=== PATIENT | female | born 1985 | race Caucasian/White ===

== ENCOUNTER → 2016-10-30 | Outpatient (CLI) | payer BC ==
[2016-10-30 13:05] LABS: Basophils % (A) 0 %; CH 27.4; CHCM 33.8; Eosinophils # (A) 0.1 k/uL (0-0.7); Eosinophils % (A) 1 %; HCT 36.1 % (34.0-46.0); HDW 2.82; Luc # (Auto) 0.12; Luc % (Auto) 1; Lymphocytes # (A) 1.7 k/uL (1.0-4.8); Lymphocytes % (A) 18 %; MCHC 33.3 g/dL (31.0-37.0); MCV 81.2 fL (80.0-100.0); Mean Platelet Volume 9.1; Monocytes # (A) 0.5 k/uL (0-1.0); Monocytes % (A) 5 %; Neutrophils # (A) 7.2 k/uL (1.3-7.7); Neutrophils % (A) 75 %; RBC 4.44 m/uL (3.80-5.40); RDW 15.6 % (11.5-15.5); WBC 9.6 k/uL (3.8-10.6); WBC (Perox) 9.76
[2016-10-30 14:26] LABS: Vitamin B12 320 pg/mL (239-931)
[2016-10-30 14:41] LABS: Erythrocyte Sedimentation Rate 12 mm/hr (0-20)
[2016-10-30 17:27] LABS: ANA w/Reflex to Titer NEGATIVE (NEGATIVE)
[2016-10-31 15:15] LABS: Avocado Class CLASS 0; Banana IgE Class CLASS 0; Hazelnut IgE <0.35 kU/L (<0.35); Hazelnut IgE Class CLASS 0; Kiwi IgE <0.35 kU/L (<0.35); Kiwi IgE Class CLASS 0
== END | disposition home or self-care (01) ==
LOC: LABWHC1 12:23
PROVIDERS: ATTEND Otolaryngology
DX: I50.9 Heart failure, unspecified (principal); J30.89 Other allergic rhinitis; B44.89 Other forms of aspergillosis
CPT/HCPCS: 36415; 82306; 82607; 82746; 84165; 84207; 84630; 85025; 85652; 86003; 86038; 86235; 86694

== ENCOUNTER → 2017-01-08 | Outpatient (CLI) | payer BC ==
[2017-01-08 14:05] LABS: Basophils % (A) 0 %; CH 26.5; CHCM 32.2; Eosinophils # (A) 0.1 k/uL (0-0.7); Eosinophils % (A) 1 %; HCT 32.4 % (34.0-46.0); HDW 3.13; Hypochromasia Slight; Luc # (Auto) 0.18; Luc % (Auto) 2; Lymphocytes # (A) 1.7 k/uL (1.0-4.8); Lymphocytes % (A) 16 %; MCH 28.2 pg (25.0-35.0); MCV 82.8 fL (80.0-100.0); Mean Platelet Volume 8.8; Monocytes # (A) 0.5 k/uL (0-1.0); Monocytes % (A) 5 %; Neutrophils # (A) 7.7 k/uL (1.3-7.7); Neutrophils % (A) 75 %; RBC 3.92 m/uL (3.80-5.40); RDW 15.1 % (11.5-15.5); WBC 10.2 k/uL (3.8-10.6); WBC (Perox) 10.23
== END | disposition home or self-care (01) ==
LOC: LABWHC1 12:43
PROVIDERS: ATTEND Obstetrics & Gynecology
DX: O26.90 Pregnancy related conditions, unspecified, unspecified trimester (principal); Z3A.00 Weeks of gestation of pregnancy not specified
CPT/HCPCS: 36415; 82950; 85025

== ENCOUNTER → 2019-08-14 | Outpatient (CLI) | payer BC ==
[2019-08-14 12:03] LABS: Basophils % (A) 1 %; Eosinophils # (A) 0.2 k/uL (0-0.7); Eosinophils % (A) 3 %; HCT 38.6 % (34.0-46.0); HGB 12.8 gm/dL (11.4-16.0); Lymphocytes # (A) 1.9 k/uL (1.0-4.8); Lymphocytes % (A) 28 %; MCH 27.3 pg (25.0-35.0); MCHC 33.1 g/dL (31.0-37.0); MCV 82.3 fL (80.0-100.0); Mean Platelet Volume 7.3; Monocytes # (A) 0.5 k/uL (0-1.0); Monocytes % (A) 7 %; Neutrophils # (A) 4.1 k/uL (1.3-7.7); Neutrophils % (A) 60 %; Platelet Count 276 k/uL (150-450); RBC 4.69 m/uL (3.80-5.40); RDW 15.7 % (11.5-15.5); WBC 6.7 k/uL (3.8-10.6)
== END | disposition home or self-care (01) ==
LOC: LABPAT 10:23
PROVIDERS: ATTEND Surgery
DX: Z01.812 Encounter for preprocedural laboratory examination (principal); K43.0 Incisional hernia with obstruction, without gangrene; K42.0 Umbilical hernia with obstruction, without gangrene; F17.200 Nicotine dependence, unspecified, uncomplicated; D64.9 Anemia, unspecified
CPT/HCPCS: 36415; 85025

== ENCOUNTER 2019-08-20 08:47 | Day surgery (SDC) | payer BC ==
[2019-08-15 13:13] VITALS: BMI 28.3
[~2019-08-20 08:47] MED LIST: DEXAMETHASONE SOD PHOSPHATE 10 MG/ML 1 ML VIAL IV ONE; HEPARIN SODIUM,PORCINE 5,000 UNIT/ML 1 ML VIAL SQ ONE; LACTATED RINGERS 1,000 ML IV SCH; LIDOCAINE 1% 20 ML VIAL (10MG/ML) FOR IV START INTRADERMA PRN; MIDAZOLAM 2 MG/2 ML VIAL IV PRN; ONDANSETRON 4 MG/2 ML VIAL IVP ONE; SCOPOLAMINE 1.5MG/72HR PATCH TRANSDERM ONE
[2019-08-20] MEDS ORDERED: MIDAZOLAM 2 MG/2 ML VIAL IVP ONE (11:02)
--- NOTE | 2019-08-20 11:03 | P.GSHP ---
History of Present Illness H&P Date: 08/20/19 Chief Complaint: Umbilical and ventral hernia This is a 34-year-old female who's developed an umbilical and ventral hernia. Patient presents today for laparoscopic robotic-assisted repair. Past Medical History Past Medical History: Asthma, Eye Disorder, GERD/Reflux Additional Past Medical History / Comment(s): Narrow angles in eyes. Umbilical, ventral hernia's currently. History of Any Multi-Drug Resistant Organisms: MRSA Date of last positivie culture/infection: 2006 MDRO Source:: Leg Additional Past Surgical History / Comment(s): Colonoscopy Past Anesthesia/Blood Transfusion Reactions: Motion Sickness, Postoperative Nausea & Vomiting (PONV) Smoking Status: Never smoker - Past Family History Mother Sister(s) Family Medical History: CVA/TIA Medications and Allergies Home Medications Medication Instructions Recorded Confirmed Type Cetirizine HCl [Zyrtec] 10 mg PO DAILY 08/15/19 08/20/19 History Citalopram Hydrobromide [CeleXA] 20 mg PO HS 08/15/19 08/20/19 History Levalbuterol Hfa Inhaler [Xopenex 2 puff INHALATION Q6HR PRN 08/15/19 08/20/19 History Hfa Inhaler] Montelukast [Singulair] 10 mg PO HS 08/15/19 08/20/19 History Pantoprazole Sodium [Protonix] 20 mg PO DAILY PRN 08/15/19 08/20/19 History Prednisolone Acetate/Pf 1 drop LEFT EYE QID 08/20/19 08/20/19 History [Prednisolone Acet 1% Eye Drop] Allergies Allergy/AdvReac Type Severity Reaction Status Date / Time Latex, Natural Rubber Allergy Swelling, Verified 08/15/19 12:55 itching Surgical - Exam Vital Signs Temp Pulse Resp BP Pulse Ox 98.5 F 97 116 H 112/75 98 08/20/19 09:14 08/20/19 09:14 08/20/19 09:14 08/20/19 09:14 08/20/19 09:14 - General well developed, well nourished, no distress - Eyes PERRL - ENT normal pinna - Neck no masses - Respiratory normal expansion - Cardiovascular Rhythm: regular - Abdomen Abdomen: soft, non tender Hernia: umbilical (3 cm ventral hernia located above the umbilicus) Assessment and Plan Assessment: Umbilical and ventral hernia. We'll perform laparoscopic robotic-assisted repair.
[2019-08-20] MEDS ORDERED: PROPOFOL 10 MG/ML 20 ML VIAL IV ONE (11:17)
[2019-08-20] MEDS ORDERED: ROCURONIUM BROMIDE 10 MG/ML 10 ML VIAL IV ONE (11:17)
[2019-08-20] MEDS ORDERED: SUCCINYLCHOLINE CHLORIDE 100 MG/5 ML SYR IV ONE (11:17)
[2019-08-20] MEDS ORDERED: MIDAZOLAM 2 MG/2 ML VIAL ONE (11:17)
[2019-08-20] MEDS ORDERED: fentaNYL (PF) 50 MCG/ML 2 ML AMP ONE (11:17)
[2019-08-20] MEDS ORDERED: KETAMINE 10 MG/ML 20 ML VIAL ONE (11:17)
[2019-08-20] MEDS ORDERED: LIDOCAINE 1% INJ 10MG/ML (20 ML MDV) ONE (11:17)
[2019-08-20] MEDS ORDERED: NEOSTIGMINE 1 MG/ML 10 ML VIAL ONE (11:17)
[2019-08-20] MEDS ORDERED: KETOROLAC 30 MG/ML 1 ML VIAL ONE (11:17)
[2019-08-20] MEDS ORDERED: GLYCOPYRROLATE 0.2 MG/ML 2 ML VIAL ONE (11:17)
[2019-08-20] MEDS ORDERED: HYDROmorphone (PF) 1 MG/ML ONE (11:17)
[2019-08-20] MEDS ORDERED: LACTATED RINGERS 1,000 ML IV ONE ×3 (11:42→14:25)
[2019-08-20] MEDS ORDERED: BUPIVACAINE (PF) 0.25% 30 ML VIAL SQ ONE (11:59)
[2019-08-20] MEDS: HYDROmorphone 0.5 MG/0.5 ML SYRINGE IVP PRN ×4 (12:54→13:26)
[2019-08-20 12:58] VITALS: TEMP 98.2
--- NOTE | 2019-08-20 13:26 | P.OP ---
Date of Procedure: 08/20/19 Preoperative Diagnosis: Umbilical hernia Ventral hernia Postoperative Diagnosis: Umbilical hernia Ventral hernia Procedure(s) Performed: Laparoscopic repair of umbilical hernia Laparoscopic repair of ventral hernia Partial omentectomy Anesthesia: DAVE Surgeon: Alvarez Parra Pathology: none sent Condition: stable Disposition: PACU Description of Procedure: The patient was placed on the operating table in the supine position. He received general anesthesia. His abdomen was prepped and draped usual fashion. Using a 5 mm optical trocar under direct visualization the peritoneal cavity was entered in the left upper quadrant. The abdomen was then insufflated. The laparoscope was placed back into the perineal cavity. Next a 8 mm robotic trocar was placed in the left lower quadrant and a 12 mm robotic trocar was placed in the left lateral position. The original 5 mm trocar was exchanged for a 8 mm robotic trocar. The patient's placed in the left side up position. And the patient was undocked the robot. The umbilical hernia was visualized. Using hook cautery the peritoneum over the umbilical hernia was excised. The incarcerated omentum the fascia was then dissected free and sent to pathology. The ventral hernia was located above the umbilical hernia. The fascial opening was repaired using 0V LOC suture. Next a piece of 11 cm round ventral light ST mesh was placed into the. Cavity and secured with 2 OV lock suture. The patient was undocked the robot. The needles were retrieved. The fascia of the 12 mm trocar site was closed with 0 Ethibond suture. Skin was closed interrupted 3-0 Monocryl suture. Dermabond dressings was applied. Patient top procedure well and was sent to recovery room stable condition.
[2019-08-20 14:12] VITALS: RESP 16
[2019-08-20] MEDS ORDERED: HYDROcodone/APAP 5-325MG 1 EACH TAB PO ONE (14:17)
[2019-08-20 14:52] VITALS: BP 111/72; PULSE 101
[2019-08-20] MEDS ORDERED: ONDANSETRON 4 MG/2 ML VIAL IVP ONE ×2 (14:58)
== END 2019-08-20 15:32 | disposition home or self-care (01) ==
LOC: OR 08:47
PROVIDERS: ATTEND Surgery
DX: K42.0 Umbilical hernia with obstruction, without gangrene (principal); K43.9 Ventral hernia without obstruction or gangrene; J45.909 Unspecified asthma, uncomplicated; K21.9 Gastro-esophageal reflux disease without esophagitis; H40.033 Anatomical narrow angle, bilateral; Z86.14 Personal history of Methicillin resistant Staphylococcus aureus infection; Z82.3 Family history of stroke; Z79.899 Other long term (current) drug therapy; Z91.040 Latex allergy status; Z91.09 Other allergy status, other than to drugs and biological substances
CPT/HCPCS: 49653; S2900; 88302

== ENCOUNTER → 2019-11-06 | Outpatient (CLI) | payer BC ==
[2019-11-06 14:37] LABS: HCT 38.5 % (34.0-46.0); HGB 12.3 gm/dL (11.4-16.0); MCH 25.9 pg (25.0-35.0); RBC 4.75 m/uL (3.80-5.40); WBC 7.1 k/uL (3.8-10.6)
[2019-11-06 14:38] LABS: Basophils % (A) 0 %; Eosinophils # (A) 0.1 k/uL (0-0.7); Eosinophils % (A) 2 %; Lymphocytes # (A) 2.2 k/uL (1.0-4.8); Lymphocytes % (A) 30 %; Mean Platelet Volume 9.6; Monocytes # (A) 0.4 k/uL (0-1.0); Monocytes % (A) 5 %; Neutrophils # (A) 4.3 k/uL (1.3-7.7); Neutrophils % (A) 61 %; Platelet Count 266 k/uL (150-450)
[2019-11-06 14:53] LABS: African American GFR (CKD) >90 (>60 ml/min/1.73 sqM); Anion Gap 10 mmol/L; Blood Urea Nitrogen 13 mg/dL (7-17); Calcium 9.9 mg/dL (8.4-10.2); Carbon Dioxide 26 mmol/L (22-30); Chloride 104 mmol/L (98-107); Glucose 88 mg/dL (74-99); Non-African American GFR(CKD) >90 (>60 ml/min/1.73 sqM); Potassium 4.1 mmol/L (3.5-5.1); Sodium 140 mmol/L (137-145)
== END | disposition home or self-care (01) ==
LOC: LABPAT 14:11
PROVIDERS: ATTEND Obstetrics & Gynecology
DX: Z01.812 Encounter for preprocedural laboratory examination (principal); N39.3 Stress incontinence (female) (male)
CPT/HCPCS: 80048; 85025

== ENCOUNTER 2019-11-11 06:03 | Inpatient (IN) | payer BC ==
[2019-11-06 13:37] VITALS: BMI 28.9
--- NOTE | 2019-11-10 19:26 | P.HPOB ---
History of Present Illness H&P Date: 11/10/19 Chief Complaint: Uterine prolapse, cystocele, rectocele, urinary incontinence This is a 34 y.o. female, 2, para 2, who presents for total vaginal hysterectomy with anterior and posterior repair due to uterine prolapse with cystocele and rectocele. She is also scheduled for transobturator sling by Dr. Barnard for urinary stress incontinence. She complains of worsening incontinence since the of her 1st child. She also feels perineal and pelvic pressure along with an aching pain. Her symptoms are exacerbated by physical activity. She has tried Kegel exercises. Urology also recommended pelvic floor physical therapy, but her insurance didnt cover it very well. She is done with childbearing and wishes definitive surgical treatment. OB Hx: . History of 2 vaginal deliveries. 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 had a vasectomy. Social Hx: . Works for [employer], [employer]. Review of Systems Constitutional: Denies chills, Denies fever Eyes: denies blurred vision, denies pain Ears, nose, mouth and throat: Denies headache, Denies sore throat Cardiovascular: Denies chest pain, Denies shortness of breath Respiratory: Denies cough Gastrointestinal: Denies abdominal pain, Denies diarrhea, Denies nausea, Denies vomiting Genitourinary: Reports pelvic pain, Reports prolapse symptoms, Reports stress incontinence Menstruation: Reports menses 1-7 days, Reports period normal Musculoskeletal: Denies myalgias Integumentary: Reports rash (excema) Neurological: Denies numbness, Denies weakness Psychiatric: Reports anxiety, Reports depression Endocrine: Denies fatigue, Denies weight change Past Medical History Past Medical History: Asthma, Eye Disorder, GERD/Reflux Additional Past Medical History / Comment(s): Narrow angle glaucoma jimmie eyes. vaginal prolapse History of Any Multi-Drug Resistant Organisms: MRSA Date of last positivie culture/infection: 2006 MDRO Source:: rt leg Past Surgical History: Hernia Repair Additional Past Surgical History / Comment(s): umbilical and ventral hernia repair; Bilateral laser eye surgery Past Anesthesia/Blood Transfusion Reactions: Motion Sickness, Postoperative Nausea & Vomiting (PONV) Past Psychological History: Anxiety, Depression Smoking Status: Never smoker Past Alcohol Use History: Occasional Past Drug Use History: Marijuana - Past Family History Mother Sister(s) Family Medical History: CVA/TIA Medications and Allergies Home Medications Medication Instructions Recorded Confirmed Type Cetirizine HCl [Zyrtec] 10 mg PO DAILY 08/15/19 11/11/19 History Citalopram Hydrobromide [CeleXA] 20 mg PO HS 08/15/19 11/11/19 History Levalbuterol Hfa Inhaler [Xopenex 2 puff INHALATION Q6HR PRN 08/15/19 11/11/19 History Hfa Inhaler] Montelukast [Singulair] 10 mg PO HS 08/15/19 11/11/19 History Pantoprazole Sodium [Protonix] 20 mg PO DAILY PRN 08/15/19 11/11/19 History Cannabidiol (Cbd) Extract 1 dose TOPICAL DAILY PRN 11/06/19 11/11/19 History [Epidiolex] Allergies Allergy/AdvReac Type Severity Reaction Status Date / Time Latex, Natural Rubber Allergy Swelling, Verified 11/11/19 06:28 itching Exam Osteopathic Statement: *. No significant issues noted on an osteopathic structural exam other than those noted in the History and Physical/Consult. HEENT: within normal limits Heart: regular rate and rhythm Lungs: clear to auscultation bilaterally Abdomen: soft, non-tender Pelvic: uterus small, anteverted, non-tender, with grade 1-2 uterine prolapse, grade 2 cystocele, and grade 2 rectocele. No adnexal masses or tenderness noted. Extremities: neg. Homans Assessment and Plan (1) Cystocele and rectocele with incomplete uterovaginal prolapse Current Visit: No Status: Acute Code(s): N81.2 - INCOMPLETE UTEROVAGINAL PROLAPSE SNOMED Code(s): 490972230 (2) Urinary, incontinence, stress female Current Visit: No Status: Acute Code(s): N39.3 - STRESS INCONTINENCE (FEMALE) (MALE) SNOMED Code(s): 66034921 Plan: Proceed with total vaginal hysterectomy with anterior and posterior vaginal repair. Dr. Barnard to perform transobturator sling. I have discussed the risks, benefits, and alternative therapies for the above-mentioned procedure and for both sedation/anesthesia as well as necessary blood products administration, if indicated, as they pertain to this patient. The patient has indicated her understanding and acceptance of the risks and procedures discussed.
--- NOTE | 2019-11-10 21:28 | P.HPIHPCON ---
History of Present Illness H&P Date: 11/11/19 Chief Complaint: stress urinary incontinence Ms. Ramires is 34 y.o. female, with Pelvic organ prolaspe and stress urinary incontinence. She is scheduled for total vaginal hysterectomy with anterior and posterior repair by Dr Dougherty. Given her ADRIANA she elected to proceed with transobturator sling. I discussed with her the risk of sling which include bleeding, infection. Discussed risk of mesh erosion in to the bladder , urethra and vagina. Also discussed the risk of chronic thigh pain. she understood all risks and agreed to proceed Consent for Procedure: I have explained the operation/procedure to the patient, including the risks, benefits, side effects, alternative therapies (including not receiving the proposed treatment or service), the likelihood of the patient achieving his/her goals, and potential recuperation problems for the procedure/sedation/analgesia, as well as any blood products, if indicated. I also explained to the patient the risks, benefits and side effects of the alternatives, as well as the risks related to not receiving the proposed procedure, care, treatment, or services. Past Medical History Past Medical History: Asthma, Eye Disorder, GERD/Reflux Additional Past Medical History / Comment(s): Narrow angle glaucoma jimmie eyes. vaginal prolapse History of Any Multi-Drug Resistant Organisms: MRSA Date of last positivie culture/infection: 2006 MDRO Source:: rt leg Past Surgical History: Hernia Repair Additional Past Surgical History / Comment(s): umbilical and ventral hernia repair; Bilateral laser eye surgery Past Anesthesia/Blood Transfusion Reactions: Motion Sickness, Postoperative Nausea & Vomiting (PONV) Past Psychological History: Anxiety, Depression Smoking Status: Never smoker Past Alcohol Use History: Occasional Past Drug Use History: Marijuana - Past Family History Mother Sister(s) Family Medical History: CVA/TIA Medications and Allergies Home Medications Medication Instructions Recorded Confirmed Type Cetirizine HCl [Zyrtec] 10 mg PO DAILY 08/15/19 11/06/19 History Citalopram Hydrobromide [CeleXA] 20 mg PO HS 08/15/19 11/06/19 History Levalbuterol Hfa Inhaler [Xopenex 2 puff INHALATION Q6HR PRN 08/15/19 11/06/19 History Hfa Inhaler] Montelukast [Singulair] 10 mg PO HS 08/15/19 11/06/19 History Pantoprazole Sodium [Protonix] 20 mg PO DAILY PRN 08/15/19 11/06/19 History Cannabidiol (Cbd) Extract 1 dose TOPICAL DAILY PRN 11/06/19 11/06/19 History [Epidiolex] Allergies Allergy/AdvReac Type Severity Reaction Status Date / Time Latex, Natural Rubber Allergy Swelling, Verified 11/06/19 13:27 itching Surgical - Exam - General well developed, well nourished, no distress, no pain - ENT normal mucosa, no hearing loss - Respiratory normal expansion, normal respiratory effort - Psychiatric oriented to time, oriented to person, oriented to place Assessment and Plan Assessment: OR for Transobturator sling
[~2019-11-11 06:03] MED LIST changes: -HEPARIN SODIUM,PORCINE 5,000 UNIT/ML 1 ML VIAL SQ ONE; +HYDROmorphone 0.5 MG/0.5 ML SYRINGE IVP PRN; -MIDAZOLAM 2 MG/2 ML VIAL IV PRN
[2019-11-11] MEDS ORDERED: fentaNYL (PF) 50 MCG/ML 2 ML AMP IV ONE ×2 (07:06)
[2019-11-11] MEDS ORDERED: MIDAZOLAM 2 MG/2 ML VIAL IV ONE (07:06)
[2019-11-11] MEDS ORDERED: MORPHINE SULFATE (PF) 0.3 MG/0.3 ML SYR ONE (07:41)
[2019-11-11] MEDS ORDERED: ONDANSETRON 4 MG/2 ML VIAL ONE (07:41)
[2019-11-11] MEDS ORDERED: ROCURONIUM BROMIDE 10 MG/ML 5 ML VIAL IV ONE (07:41)
[2019-11-11] MEDS ORDERED: LIDOCAINE 1% INJ 10MG/ML (20 ML MDV) ONE (07:41)
[2019-11-11] MEDS ORDERED: PROPOFOL 10 MG/ML 20 ML VIAL IV ONE (07:41)
[2019-11-11] MEDS ORDERED: MIDAZOLAM 2 MG/2 ML VIAL ONE (07:41)
[2019-11-11] MEDS ORDERED: DEXAMETHASONE SOD PHOS (MDV) 100 MG/10 ML VIAL ONE (07:41)
[2019-11-11] MEDS ORDERED: EPINEPHrine 1 MG/ML 1 ML AMP SQ ONE (08:00)
[2019-11-11] MEDS ORDERED: GENTAMICIN 80 MG in SODIUM CHLORIDE 0.9% 200 ML IRRIGATION ONE (08:55)
--- NOTE | 2019-11-11 09:42 | P.OP ---
Date of Procedure: 11/11/19 Preoperative Diagnosis: Uterine prolapse Cystocele and rectocele Urinary stress incontinence Postoperative Diagnosis: Same Procedure(s) Performed: Total vaginal hysterectomy with anterior and posterior vaginal colporrhaphy Collin obturator sling performed by Dr. Barnard Anesthesia: GETA, spinal ([employer]) Surgeon: Yudith Dougherty Mixer And Scaler #1: Maryann Hernandez Estimated Blood Loss (ml): 200 Pathology: other (Uterus with cervix, vaginal mucosa) Condition: stable Disposition: floor Indications for Procedure: This is a 34 y.o. female, 2, para 2, who presents for total vaginal hysterectomy with anterior and posterior repair due to uterine prolapse with cystocele and rectocele. She is also scheduled for transobturator sling by Dr. Barnard for urinary stress incontinence. She complains of worsening incontinence since the of her 1st child. She also feels perineal and pelvic pressure along with an aching pain. Her symptoms are exacerbated by physical activity. She has tried Kegel exercises. Urology also recommended pelvic floor physical therapy, but her insurance didnt cover it very well. She is done with childbearing and wishes definitive surgical treatment. Operative Findings: Uterus with grade 2 prolapse, grade 2 cystocele, grade 2 rectocele. Normal ovaries and tubes are noted. Description of Procedure: The patient is taken the operating room where she is placed in the dorsal lithotomy position. She is prepped and draped in the normal sterile fashion. Next a weighted speculum was placed in the patient's vagina and a right angle retractor was used to visualize the cervix. The anterior lip of the cervix is grasped with a single-tooth tenaculum. Next the cervix was circumferentially injected with one amp of epinephrine to 150 mL of normal saline. Next the c ervix was circumscribed with a scalpel. The vaginal mucosa was pushed away from the cervix with a sponge. Next the uterosacral ligaments are clamped on either side with a Alie clamp, cut with Salcedo scissors, and then sutured with 0 Vicryl suture in a Alie transfixion stitch and then held on either side with a straight hemostat. Next the posterior peritoneal reflection was identified and entered sharply with Salcedo scissors. The edges of the vaginal mucosa was then tagged with 0 Vicryl suture and held with a curved hemostat for identification. Next a longbilled weighted speculum was placed through the posterior peritoneal reflection. Next the cardinal ligaments were clamped on either side with Alie clamps, cut with Salcedo scissors, and then sutured with 0 Vicryl suture in Alie transfixion stitches and cut. Next the vesicouterine peritoneum reflection is identified and entered sharply with Metzenbaum scissors. A right angle bladder retractor is then used to retract the bladder. The uterine arteries are clamped on either side with Alie clamps, cut with Salcedo scissors, and then sutured with 0 Vicryl suture in Alie transfixion stitches. The round ligament is also clamped on either side with a Alie clamp, cut with Salcedo scissors, and sutured with 0 Vicryl suture in Alie transfixion stitches. Next the uterine ovarian ligament and tube were clamped on either side with a Alie clamp, cut with Aslcedo scissors, and then sutured with 0 Vicryl suture in a [id number] stitch, flashed, and then free tied with another suture of 0 Vicryl suture. These pedicles were held with a straight Court for identification. The uterus is removed from the field. Once good hemostasis was noted, the peritoneum is closed with 0 Vicryl suture in a pursestring fashion incorporating all the held ligaments. Both tubes and ovaries were noted to be normal. Next the uterine ovarian ligaments are tied together in the middle and cut. Next attention was turned to the cystocele repair. The edges of the vaginal mucosa are held with 2 Allis clamps. Next injection of the same epinephrine solution is injected underneath the mucosa upwards towards the urethra. Metzenbaum scissors were used to dissect underneath the vaginal mucosa and cut along the way up to just below the urethra. Sharp and blunt dissection are used to dissect the bladder away from the vaginal mucosa. Once the bladder is freed, the cystocele is reduced with 0 Vicryl suture in [id number] stitches on either side of the cystocele. Next the edges of the vaginal mucosa are trimmed with Metzenbaum scissors. Next Dr. Barnard performed his portion of the surgery. This will be dictated separately. Next the vaginal mucosa is sutured with 0 Vicryl suture in a running locked fashion incorporating the vaginal cuff. The uterosacral ligaments were also tied together in the midline prior to completely closing the vaginal cuff. Excellent hemostasis is noted. The Massey catheter is inserted and clear urine is noted. Next attention is turned to the posterior repair. The introitus is grasped at the 4 and 8 o'clock position with Allis clamps. Injection of the same epinephrine solution is injected underneath the vaginal mucosa towards the apex of the cuff. Next a triangle her piece of tissue was removed between the 2 Allis clamps with a scalpel. Next Metzenbaum scissors are used to dissect underneath the vaginal mucosa upwards towards the apex cutting along the way. The edges of the vaginal mucosa are held with Allis clamps. Next the rectocele is reduced away from the vaginal mucosa with sharp and blunt dissection. The rectocele is reduced with 0 Vicryl suture in interrupted [id number] stitches. Next the vaginal mucosa is trimmed. The vaginal mucosa was then sutured with 0 Vicryl suture in a running locked fashion up to the introitus and then brought back underneath the tissues and in a running fashion up to the apex. Next it was brought out of the apex and onto the skin in subcuticular fashion and tied at the introitus. Good hemostasis is noted. Next the vagina is packed with one-inch iodoform gauze with bacitracin ointment. All sponge and needle counts are correct and the patient is then taken to recovery room in stable condition.
--- NOTE | 2019-11-11 09:45 | P.OP ---
Date of Procedure: 11/11/19 Preoperative Diagnosis: Stress urinary incontinence Postoperative Diagnosis: Same Procedure(s) Performed: Trans-obturator sling, cystoscopy Implants: Obturux mesh Anesthesia: YULIETA Surgeon: Eddie Barnard Speech Therapist Technician #1: Yudith Dougherty Estimated Blood Loss (ml): 25 Pathology: none sent Condition: stable Disposition: PACU Indications for Procedure: Ms. Ramires is 34 y.o. female, with Pelvic organ prolaspe and stress urinary incontinence. She is scheduled for total vaginal hysterectomy with anterior and posterior repair by Dr Dougherty. Given her ADRIANA she elected to proceed with transobturator sling. I discussed with her the risk of sling which include bleeding, infection. Discussed risk of mesh erosion in to the bladder , urethra and vagina. Also discussed the risk of chronic thigh pain. she understood all risks and agreed to proceed Description of Procedure: The patient was taken to the operating room and placed in the dorsal lithotomy position The perineum, lower abdomen, and vagina were prepped and draped sterilely. At this time Anterior and transvaginal hysterctomy was performed by Dr. Dougherty. Please see her op note for her portion of dictation. The anterior repair was not closed at this time and we proceeded with sling placement. The scalpel was used to make bilateral groin incisions at the level of the clitoris. Subcutaneous tissues were spread with a hemostat. Each of the helical needles were passed through the respective groin incision, and turned such that the needle tip wrapped around the pubis. The needle tips were guided digitally into the vaginal incision. The Obtryx graft, which had been previously soaked in antibiotic solution, was secured to the needle tips in the standard fashion. The needles were then withdrawn, and the position of the graft was adjusted such that it overlie the mid urethra, as desired. With a hemostat placed between the graft and the urethra to prevent tension of the graft over the urethra, the plastic sheath was removed from the ends of the graft. The ends of the graft were cut beneath the skin incisions, and these incisions were closed using 4-0 monocryl suture in a subcuticular fashion. Hemostasis within the vaginal incision was adequate, and vaginal incision was closed by Dr Dougherty. Cystoscopy was performed. The 30 lens was used to introduce the 17-Samo[place] Storz cystoscopic sheath through the urethra and into the bladder under direct vision. The urethra and bladder were unremarkable. There was no evidence of perforation.. No tumors or foreign bodies were seen. The cystoscope was removed, and the Massey catheter was replaced into the bladder. At this point Dr Dougherty proceeded with posterior repair, please see her portion of the dicatation for that part of the surgery. The patient was awaken from anesthesia and taken to recovery in stable condition
[2019-11-11] MEDS ORDERED: diphenhydrAMINE 50 MG/ML 1 ML VIAL IVP ONE (10:04)
[2019-11-11] MEDS ORDERED: ONDANSETRON 4 MG/2 ML VIAL IVP PRN ×2 (10:28→10:49)
[2019-11-11] MEDS ORDERED: NALOXONE 0.4 MG/ML 1 ML VIAL IV PRN (10:28)
[2019-11-11] MEDS ORDERED: NALBUPHINE 10 MG/ML (1 ML AMP) IV PRN (10:28)
[2019-11-11] MEDS ORDERED: HYDROmorphone 0.5 MG/0.5 ML SYRINGE IVP PRN (10:28)
[2019-11-11] MEDS ORDERED: diphenhydrAMINE 50 MG/ML 1 ML VIAL IVP PRN ×2 (10:28→10:49)
[2019-11-11] MEDS ORDERED: HYDROcodone/APAP 5-325MG 1 EACH TAB PO PRN (10:49)
[2019-11-11] MEDS ORDERED: IBUPROFEN 600 MG TAB PO PRN (10:49)
[2019-11-11] MEDS ORDERED: SIMETHICONE 80 MG CHEWABLE PO PRN (10:49)
[2019-11-11] MEDS ORDERED: ALBUTEROL NEBULIZED 2.5 MG/3 ML INHALATION PRN (10:49)
[2019-11-11] MEDS ORDERED: ZOLPIDEM 5 MG TAB PO PRN (10:49)
[2019-11-11] MEDS ORDERED: METOCLOPRAMIDE 5 MG/ML 2 ML VIAL IVP PRN (10:49)
[2019-11-11] MEDS ORDERED: HYDROcodone/APAP 7.5-325MG 1 EACH TAB PO PRN (10:49)
[2019-11-11] MEDS ORDERED: PANTOPRAZOLE SODIUM 40 MG GRANULE PKT PO PRN (10:49)
[2019-11-11] MEDS: SENNOSIDES-DOCUSATE SODIUM 1 EACH TAB PO SCH ×2 (19:44→21:05)
[2019-11-11] MEDS: LACTATED RINGERS 1,000 ML IV SCH (19:45)
[2019-11-11] MEDS: KETOROLAC 30 MG/ML 1 ML VIAL IVP PRN (19:54)
[2019-11-11] MEDS ORDERED: CITALOPRAM HYDROBROMIDE 20 MG TAB PO SCH (21:00)
[2019-11-11] MEDS ORDERED: MONTELUKAST 10 MG TAB PO SCH (21:00)
[2019-11-11] MEDS: LORATADINE 10 MG TAB PO SCH (21:04)
[2019-11-12] MEDS: LACTATED RINGERS 1,000 ML IV SCH ×2 (00:05→05:22)
[2019-11-12] MEDS: KETOROLAC 30 MG/ML 1 ML VIAL IVP PRN (06:17)
[2019-11-12 06:53] LABS: Basophils % (A) 0 %; Eosinophils # (A) 0.1 k/uL (0-0.7); Eosinophils % (A) 1 %; HCT 30.7 % (34.0-46.0); Hypochromasia Slight; Lymphocytes # (A) 2.5 k/uL (1.0-4.8); Lymphocytes % (A) 28 %; MCH 26.7 pg (25.0-35.0); MCHC 32.7 g/dL (31.0-37.0); MCV 81.7 fL (80.0-100.0); Monocytes # (A) 0.6 k/uL (0-1.0); Monocytes % (A) 7 %; Neutrophils # (A) 5.7 k/uL (1.3-7.7); Neutrophils % (A) 63 %; Platelet Count 222 k/uL (150-450); RBC 3.75 m/uL (3.80-5.40)
[2019-11-12] MEDS ORDERED: ACETAMINOPHEN TAB 325 MG TAB PO PRN (07:45)
[2019-11-12 08:43] VITALS: BP 98/64; PULSE 70; RESP 20; TEMP 98.5
--- NOTE | 2019-11-12 08:53 | P.DS ---
Providers Date of admission: 11/11/19 06:03 Expected date of discharge: 11/12/19 Attending physician: Yudith Dougherty Primary care physician: Aryan Ervin - Discharge Diagnosis(es) (1) Cystocele and rectocele with incomplete uterovaginal prolapse Current Visit: No Status: Acute (2) Urinary, incontinence, stress female Current Visit: No Status: Acute Hospital Course: This is a 34-year-old female who underwent a total vaginal hysterectomy with anterior and posterior vaginal colporrhaphy along with trans-obturator sling on 11/11/2019. This morning she feels very good. Her pain is minimal. Bleeding has been minimal. She has urinated twice with residuals less than 50 mL. She is passing flatus but no bowel movement yet. She has been ambulating without difficulty. Vital signs are stable. Abdomen is soft with positive bowel sounds 4. Gaye-pad shows scant serosanguineous discharge. Extremities show negative Homans. Impression is status post total vaginal hysterectomy with anterior and posterior repair and sling procedure postoperative day #1. Plan is to discharge home today as long as urology agrees. She is advised follow-up in the office in 1 week for a postoperative check. She is advised to continue limited activities. She will be given a prescription for ibuprofen and Clinchco. She has been counseled regarding opioid use and has signed a consent form. She is advised to call the office if she has any further questions or concerns prior to her appointment time. Routine postoperative instructions are given. Procedures: Total vaginal hysterectomy with anterior and posterior vaginal colporrhaphy on 11/11/2019 Trans obturator sling performed by Dr. Barnard on 11/11/2019 Patient Condition at Discharge: Stable Plan - Discharge Summary Discharge Rx Participant: No New Discharge Prescriptions: New Ibuprofen [Motrin] 600 mg PO Q6HR PRN #60 tab PRN Reason: Mild Discomfort HYDROcodone/APAP 5-325MG [Clinchco 5-325] 1 each PO Q6HR PRN #18 tab PRN Reason: Pain Continue Levalbuterol Hfa Inhaler [Xopenex Hfa Inhaler] 2 puff INHALATION Q6HR PRN PRN Reason: asthma Citalopram Hydrobromide [CeleXA] 20 mg PO HS Montelukast [Singulair] 10 mg PO HS Cetirizine HCl [Zyrtec] 10 mg PO DAILY Pantoprazole Sodium [Protonix] 20 mg PO DAILY PRN PRN Reason: GERD Cannabidiol (Cbd) Extract [Epidiolex] 1 dose TOPICAL DAILY PRN PRN Reason: Pain Discharge Medication List Cetirizine HCl [Zyrtec] 10 mg PO DAILY 08/15/19 [History] Citalopram Hydrobromide [CeleXA] 20 mg PO HS 08/15/19 [History] Levalbuterol Hfa Inhaler [Xopenex Hfa Inhaler] 2 puff INHALATION Q6HR PRN 08/15/19 [History] Montelukast [Singulair] 10 mg PO HS 08/15/19 [History] Pantoprazole Sodium [Protonix] 20 mg PO DAILY PRN 08/15/19 [History] Cannabidiol (Cbd) Extract [Epidiolex] 1 dose TOPICAL DAILY PRN 11/06/19 [History] HYDROcodone/APAP 5-325MG [Clinchco 5-325] 1 each PO Q6HR PRN #18 tab 11/12/19 [Rx] Ibuprofen [Motrin] 600 mg PO Q6HR PRN #60 tab 11/12/19 [Rx] Follow up Appointment(s)/Referral(s): Yudith Dougherty DO [Doctor of Osteopathic Medicine] - 1 Week Eddie Barnard MD [STAFF PHYSICIAN] - 2 Weeks Activity/Diet/Wound Care/Special Instructions: No heavy lifting. May shower. No intercourse for [address] as she is not taking narcotic pain medication. Diet as tolerated. Discharge Disposition: HOME SELF-CARE
[2019-11-12] MEDS: SENNOSIDES-DOCUSATE SODIUM 1 EACH TAB PO SCH (09:35)
[2019-11-12] MEDS: LORATADINE 10 MG TAB PO SCH (09:36)
--- NOTE | 2019-11-13 13:58 | P.PN ---
Progress Note - Text 11/12 656am 34-year-old female status post total vaginal hysterectomy I Dr. Dougherty. Patient seen and evaluated for postop pain control, patient has a VAS of 0, no complains of nausea vomiting or pruritus. Patient doing very well
== END 2019-11-12 12:45 | disposition home or self-care (01) | DRG 743 ==
LOC: 2ORMAIN 06:03 → EDSTATUS 07:30 → 4FBP 10:03
PROVIDERS: ADMIT Obstetrics & Gynecology; ATTEND Obstetrics & Gynecology
PROC: 0UT97ZZ Resection of Uterus, Via Natural or Artificial Opening (ICD-10-PCS; principal; 2019-11-11 07:30)
PROC: 0JQC0ZZ Repair Pelvic Region Subcutaneous Tissue and Fascia, Open Approach (ICD-10-PCS; principal; 2019-11-11 07:30)
PROC: 0TSD0ZZ Reposition Urethra, Open Approach (ICD-10-PCS; principal; 2019-11-11 07:30)
PROC: 0TJB8ZZ Inspection of Bladder, Via Natural or Artificial Opening Endoscopic (ICD-10-PCS; principal; 2019-11-11 07:30)
DX: N81.2 Incomplete uterovaginal prolapse (principal); F32.9 Major depressive disorder, single episode, unspecified; F41.9 Anxiety disorder, unspecified; H40.20X0 Unspecified primary angle-closure glaucoma, stage unspecified; J45.909 Unspecified asthma, uncomplicated; N39.3 Stress incontinence (female) (male); K21.9 Gastro-esophageal reflux disease without esophagitis; Z79.899 Other long term (current) drug therapy; Z86.14 Personal history of Methicillin resistant Staphylococcus aureus infection; Z91.040 Latex allergy status; Z82.3 Family history of stroke
CPT/HCPCS: 80048; 81025; 85025; 86850; 86900; 86901; 88305; 88307